=== PATIENT | male | born 1990 | race African-American/Black ===

== ENCOUNTER 2016-10-01 18:59 | Emergency (ER) | payer SELFPAY ==
[~2016-10-01] VITALS: Ht 175.3 cm; Wt 65.8 kg
[2016-10-01 19:30] VITALS: BP 151/80
[2016-10-01] MEDS ORDERED: TOBR5DRO6 OS (19:48)
--- NOTE | 2016-10-01 19:48 | PHYS DOC ---
Past Medical History Past Medical History: No Pertinent History Past Surgical History: No Surgical History Alcohol Use: None Drug Use: None Adult General Chief Complaint Chief Complaint: EYE PROBLEMS HPI HPI Patient is a 26 year old male who presents with left eye redness and crusting matter that he noted this morning when he woke up. Patient denies any vision loss. Review of Systems Review of Systems Constitutional: Denies fever or chills [] Eyes: Left eye redness HENT: Denies nasal congestion or sore throat [][] Integument: Denies rash or skin lesions [] Neurologic: Denies headache, focal weakness or sensory changes [] Endocrine: Denies polyuria or polydipsia [] Allergies Allergies Allergies Coded Allergies Type Severity Reaction Last Updated Verified No Known Drug Allergies 07/26/15 No Physical Exam Physical Exam Constitutional: Well developed, well nourished, no acute distress, non-toxic appearance. [] HENT: Normocephalic, atraumatic, bilateral external ears normal, oropharynx moist, no oral exudates, nose normal. [] Eyes: PERRLA, EOMI, left conjunctiva appears moderately injected, no discharge noted. Skin: Warm, dry, no erythema, no rash. [] Back: No tenderness, no CVA tenderness. [] Extremities: No tenderness, no cyanosis, no clubbing, ROM intact, no edema. [] Neurologic: Alert and oriented X 3, normal motor function, normal sensory function, no focal deficits noted. [] Psychologic: Affect normal, judgement normal, mood normal. [] EKG EKG [] Radiology/Procedures Radiology/Procedures [] Course & Med Decision Making Course & Med Decision Making Pertinent Labs and Imaging studies reviewed. (See chart for details) Patient has bacterial conjunctivitis to the left eye. Discharged with tobramycin eyedrops. Instructed to maintain good hand hygiene. No contact lenses use until the infection has cleared up. Provided return precautions and discharged in stable condition. Dragon Disclaimer Dragon Disclaimer This electronic medical record was generated, in whole or in part, using a voice recognition dictation system. Departure Departure Impression: Primary Impression: Bacterial conjunctivitis of left eye Disposition: HOME, SELF-CARE Condition: STABLE Referrals: NO PCP (PCP) Cindy NAGEL MD See him in one week if symptoms continue Patient Instructions: Bacterial Conjunctivitis Additional Instructions: You were seen for pinkeye the left eye. Keep your eyes clean. You can wash the affected eye with baby shampoo twice a day and as needed. Do not wear contact lenses. Maintain very good hand hygiene. Follow-up with the provided doctor in 1 -2 weeks. Come back to the emergency room if symptoms worsen or develop any concerning symptoms. Scripts Tobramycin 5 Ml Drops1 Drop OS Q4HRS #5 ML Prov:SERGEY KELSEY APRN 10/01/16 SERGEY KELSEY APRN Oct 01, 2016 19:48
== END 2016-10-01 20:00 | disposition home or self-care (01) ==
LOC: ER 18:59
DX: B99.8 Other infectious disease (principal); H10.89 Other conjunctivitis
CPT/HCPCS: 99283

== ENCOUNTER 2017-11-22 15:45 | Emergency (ER) | payer SELFPAY ==
[2017-11-22 16:32] LABS: ADD MAN DIFF? NO
[2017-11-22 16:38] LABS: BASO # 0.1 x10^3/uL (0.0-0.2); BASO % 1 % (0-3); EOS # 0.2 x10^3/uL (0.0-0.7); EOS % 3 % (0-3); HEMATOCRIT 43.2 % (39.0-53.0); HEMOGLOBIN 14.4 g/dL (13.0-17.5); LYMPH # 1.8 x10^3/uL (1.0-4.8); LYMPH % 37 % (24-48); MEAN CORPUSCULAR HEMOGLOBIN 27 pg (25-35); MEAN CORPUSCULAR HGB CONC 33 g/dL (31-37); MEAN CORPUSCULAR VOLUME 81 fL (79-100); MONO # 0.5 x10^3/uL (0.0-1.1); MONO % 10 % (0-9); NEUT # 2.4 x10^3uL (1.8-7.7); NEUT % 49 % (31-73); PLATELET COUNT 212 x10^3/uL (140-400); RED BLOOD COUNT 5.35 x10^6/uL (4.30-5.70); RED CELL DISTRIBUTION WIDTH 13.9 % (11.5-14.5); WHITE BLOOD COUNT 4.9 x10^3/uL (4.0-11.0)
[2017-11-22] MEDS: IV NORMAL SALINE 1000ML BAG 1,000 ML IV (16:54)
[2017-11-22 16:56] LABS: ANION GAP 11 (6-14); BLOOD UREA NITROGEN 7 mg/dL (8-26); BUN/CREATININE RATIO 8 (6-20); CARBON DIOXIDE 26 mmol/L (21-32); CHLORIDE 105 mmol/L (98-107); CREATININE 0.9 mg/dL (0.7-1.3); GFR 124.4; GLUCOSE 107 mg/dL (70-99); POTASSIUM 3.8 mmol/L (3.5-5.1); SODIUM 142 mmol/L (136-145)
[2017-11-22 17:03] LABS: ALBUMIN 3.9 g/dL (3.4-5.0); ALBUMIN/GLOBULIN RATIO 1.2 (1.0-1.7); ALK PHOS 54 U/L (46-116); ALT (SGPT) 30 U/L (16-63); AST (SGOT) 32 U/L (15-37); BILIRUBIN,URINE NEGATIVE (NEG); CLARITY,URINE CLEAR; COLOR,URINE YELLOW; GLUCOSE,URINE NEGATIVE (NEG); NITRITE,URINE NEGATIVE (NEG); PROTEIN,URINE NEGATIVE (NEG-TRACE); TOTAL BILIRUBIN 1.2 mg/dL (0.2-1.0); TOTAL PROTEIN 7.1 g/dL (6.4-8.2); UROBILINOGEN,URINE 0.2 mg/dL (0.2 mg/dL)
[2017-11-22 17:13] LABS: THYROID STIM HORMONE (TSH) 0.742 uIU/mL (0.358-3.74)
[2017-11-22 17:23] LABS: BACTERIA,URINE 0 /HPF (0-FEW); SQUAMOUS EPITHELIAL CELL,UR FEW /LPF; WBC,URINE OCC /HPF (0-4)
== END 2017-11-22 18:24 | disposition home or self-care (01) ==
LOC: ER 15:45
DX: R53.83 Other fatigue (principal); Z88.1 Allergy status to other antibiotic agents
CPT/HCPCS: 36415; 80053; 81001; 84443; 85025; 96360; 99284-25; J7030